=== PATIENT | male | born 1965 | race African-American/Black ===

== ENCOUNTER 2016-09-06 15:37 | Emergency (ER) | payer OTHER ==
[~2016-09-06] VITALS: Ht 157.5 cm; Wt 81.6 kg
[2016-09-06] MEDS ORDERED: BACTRIM1 TAB PO (16:46)
[2016-09-06] MEDS ORDERED: MEDROL DOSEPAK4 MG OR (16:46)
== END 2016-09-06 17:10 | disposition home or self-care (01) ==
LOC: ED 15:37
DX: T63.301A Toxic effect of unspecified spider venom, accidental (unintentional), initial encounter (principal); R21 Rash and other nonspecific skin eruption; Y92.69 Other specified industrial and construction area as the place of occurrence of the external cause
CPT/HCPCS: 96372; 99282; J2930

== ENCOUNTER 2016-09-20 17:28 | Emergency (ER) | payer OTHER ==
[~2016-09-20] VITALS: Ht 170.2 cm; Wt 81.6 kg
[~2016-09-20 17:28] MED LIST: BACTRIM1 TAB PO; MEDROL DOSEPAK4 MG OR
== END 2016-09-20 18:29 | disposition home or self-care (01) ==
LOC: ED 17:28
DX: L03.113 Cellulitis of right upper limb (principal)
CPT/HCPCS: 99282